=== PATIENT | male | born 1965 | race Caucasian/White ===

== ENCOUNTER 2016-08-14 18:21 | Emergency (ER) | payer BC ==
--- NOTE | 2016-08-14 18:50 | Emergency Department Record ---
History of Present Illness - General Chief Complaint: Chest Pain Stated Complaint: WEAK Time Seen by Provider: 08/14/16 18:45 Source: Patient Mode of Arrival: Ambulatory Limitations: No limitations - History of Present Illness Initial Comments: 51 yo male presents to ED with a CC of chest discomfort this afternoon to the left chest radiating to both arms. Patient denies health problems at his baseline aside from orthopedic injuries and DDD. Patient denies fevers, chills , or cough symptoms. Patient is a current smoker, reports family hsitory of CAD 50's (Father). MD Complaint: Chest pain Onset/Timin -: Week(s) Onset: Other Pain Location: Left chest Pain Radiation: LUE Quality: Aching, Other ("like a muscle cramp") Consistency: Now resolved Improves With: Remaining still, Other Worsens With: Nothing Context: New medications Treatments Prior to Arrival: None - Related Data Home Medications Medication Instructions Recorded Confirmed Last Taken Hydrocodone/Acetaminophen 1 tab PO Q6H PRN 08/14/16 08/14/16 Unknown [Hydrocodon-Acetaminophn 10-325] Allergies Allergy/AdvReac Type Severity Reaction Status Date / Time No Known Drug Allergies Allergy Verified 08/14/16 18:29 Travel Screening - Travel/Exposure Within Last 30 Days Have you traveled within the last 30 days?: No - Travel/Exposure Within Last Year Have you traveled outside the [place] in the last year?: No - Additonal Travel Details Have you been exposed to anyone with a communicable illness?: No - Travel Symptoms Symptom Screening: None Review of Systems Constitutional: Reports: Weakness. Denies: Chills, Fever Eyes: Denies: Eye discharge, Eye pain ENT: Denies: Congestion, Ear pain Respiratory: Denies: Cough, Dyspnea Cardiovascular: Reports: Chest pain. Denies: Dyspnea on exertion Endocrine: Denies: Fatigue, Heat or cold intolerance Gastrointestinal: Denies: Abdominal pain, Nausea, Vomiting Genitourinary: Denies: Incontinence, Retention Musculoskeletal: Denies: Arthralgia, Back pain, Gout, Joint swelling Skin: Denies: Bruising, Change in color Neurological: Denies: Abnormal gait, Confusion, Headache, Tingling Psychiatric: Denies: Anxiety Hematological/Lymphatic: Denies: Anemia, Blood Clots Past Medical History - SOCIAL HISTORY Smoking Status: Current every day smoker Alcohol Use: None Drug Use: None - RESPIRATORY Hx Respiratory Disorders: No - CARDIOVASCULAR Hx Cardio Disorders: No - NEURO Hx Neuro Disorders: Yes Comment:: 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 - GI Hx GI Disorders: No - Hx Genitourinary Disorders: No - ENDOCRINE Hx Endocrine Disorders: No - MUSCULOSKELETAL Hx Musculoskeletal Disorders: Yes - PSYCH Hx Psych Problems: No - HEMATOLOGY/ONCOLOGY Hx Hematology/Oncology Disorders: No Family Medical History Any Significant Family History?: Yes Hx Cancer: Grandparents Hx Heart Disease: Father, Grandparents Physical Exam - General General Appearance: Alert, Oriented x3, Cooperative, Anxious Limitations: No limitations - Head Head exam: Atraumatic, Normocephalic, Normal inspection Head exam detail: negative: Abrasion, Contusion, Salmeron's sign, General tenderness, Hematoma, Laceration - Eye Eye exam: Normal appearance. negative: Conjunctival injection, Periorbital swelling, Periorbital tenderness, Scleral icterus - ENT Ear exam: negative: Auricular hematoma, Auricular trauma Nasal Exam: negative: Active bleeding, Discharge, Dried blood, Foreign body, Sinus tenderness Mouth exam: negative: Drooling, Laceration, Muffled voice, Tongue elevation - Neck Neck exam: Normal inspection. negative: Meningismus, Tenderness - Respiratory Respiratory exam: Normal lung sounds bilaterally. negative: Respiratory distress, Rhonchi, Stridor, Wheezes - Cardiovascular Cardiovascular Exam: Regular rate, Normal rhythm, Normal heart sounds - GI/Abdominal GI/Abdominal exam: Soft. negative: Rebound, Rigid, Tenderness - Rectal Rectal exam: Deferred - exam: Deferred - Extremities Extremities exam: Normal inspection. negative: Calf tenderness, Pedal edema, Tenderness - Back Back exam: Reports: Normal inspection. Denies: CVA tenderness (R), CVA tenderness (L) - Neurological Neurological exam: Alert, Normal gait, Oriented X3 - Psychiatric Psychiatric exam: Normal affect, Normal mood - Skin Skin exam: Normal color. negative: Abrasion Type of lesion: negative: abrasion Course Vital Signs 08/14/16 18:31 Temperature 98.1 F Pulse Rate 102 H Respiratory 18 Rate Blood Pressure 143/89 Pulse Ox 98 - Reevaluation(s) Reevaluation #1: 08/14/16 18:47 NSR 85 Normal axis, normal intervals No acute ST-T wave changes Reevaluation #2: 08/14/16 20:03 Labs reviewed and are grossly unremarkable for an acute process. CXR: No acute process. Patient was updated on all results, offered transfer for stress testing tomorrow , patient declined. Patient is however willing to stay for 2nd Troponin with outpatient stress testing in 48 hours. Reevaluation #3: 08/14/16 22:10 Repeat Troponin is negative on examination. Patient appears stable for discharge with instructions to follow-up with the [facility] Tuesday- Tuesday for cardiac stress testing. Patient verbalizes understanding of all instructions. Medical Decision Making - Lab Data Result diagrams: 08/14/16 18:50 08/14/16 18:50 Disposition Disposition: Discharge Clinical Impression: Chest pain Qualifiers: Chest pain type: unspecified Qualified Code(s): R07.9 - Chest pain, unspecified Disposition: Home, Self-Care Condition: (2) Stable Instructions: Chest Pain (ED) Additional Instructions: Return to ED if your symptoms worsen or if you have any concerns. Follow-up Tuesday/Tuesday in the [facility] for cardiac stress testing. Follow-up with your family doctor in 3-5 days as directed. Referrals: MORA FLOWER M.D. [MEDICAL DOCTOR] - [facility] [Provider Group] Forms: Patient Portal Access Time of Disposition: 22:11
[2016-08-14] MEDS: ASPIRIN 81 MG CHEWABLE TABLET PO ONE (19:02)
[2016-08-14 19:06] LABS: BASO % 0.4 % (0-6); EOS % 2.8 % (0-6); GRAN % 55.4 % (47-80); HEMATOCRIT 47.8 % (42.0-52.0); HEMOGLOBIN 16.4 gm/dl (14.0-18.0); LYMPH % 32.8 % (16-45); MEAN CELL VOLUME 93.2 fl (81-97); MEAN CORPUSCULAR HGB CONC 34.3 g/dl (32-36); MEAN PLATELET VOLUME 11.8 fl (7.4-10.4); MONO % 8.6 % (0-9); PLATELET COUNT 255 K/uL (130-400); RED BLOOD COUNT 5.13 M/uL (4.40-5.70); WHITE BLOOD COUNT W/O DIFF 9.1 K/uL (4.2-12.2)
[2016-08-14 19:18] LABS: ALB/GLOB RATIO 1.7 (1.1-1.8); ALBUMIN 4.5 gm/dL (3.5-5.0); ALKALINE PHOSPHATASE 64 U/L (38-126); ALT/SGPT 25 U/L (21-72); ANION GAP 11.4 (7-16); AST/SGOT 18 U/L (17-59); BILIRUBIN,TOTAL 0.43 mg/dL (0.2-1.3); BLOOD UREA NITROGEN 11 mg/dL (9-20); CARBON DIOXIDE 26.6 mmol/L (22-30); CREATINE PHOSPHOKINASE 89 U/L (55-170); CREATININE 1.1 mg/dL (0.66-1.25); EST GLOMERULAR FILTRATION RATE > 60 ml/min; GLUCOSE,RANDOM 73 mg/dL (70-110); TOTAL PROTEIN 7.2 gm/dL (6.3-8.2)
[2016-08-14 19:30] LABS: CKMB 0.9 ug/L (0-6); TROPONIN I < 0.012 ng/mL (0.00-0.034)
[2016-08-14] MEDS: KETOROLAC 30 MG/ML VIAL IVP ONE (21:37)
--- NOTE | 2016-08-19 13:16 | RADIOLOGY REPORT ---
EXAM: CHEST, TWO VIEWS HISTORY: DIFFICULTY IN BREATHING. TECHNIQUE: Frontal and lateral views of the chest were performed. FINDINGS: The heart size is normal. The lung butler are clear. Elevation of the left hemidiaphragm. Mild degenerative change of the thoracolumbar junction. IMPRESSION: NO ACUTE PULMONARY DISEASE PROCESS. JOB NUMBER: [id number] MTDD
== END 2016-08-14 22:22 | disposition home or self-care (01) ==
LOC: ER 18:21
DX: R07.89 Other chest pain (principal); R53.1 Weakness; M79.622 Pain in left upper arm; M79.621 Pain in right upper arm; F17.210 Nicotine dependence, cigarettes, uncomplicated; Z82.49 Family history of ischemic heart disease and other diseases of the circulatory system
CPT/HCPCS: 99284 ×2; 96374; 82550; 85025; 82553; 84484; 80053; 71020; 93005; 93010; J1885

== ENCOUNTER 2019-03-18 11:21 | Emergency (ER) | payer BC, MEDICAID ==
--- NOTE | 2019-03-18 11:45 | Emergency Department Record ---
History of Present Illness - General Chief complaint: ENT Stated complaint: Right ear pain Time Seen by Provider: 03/18/19 11:44 Source: Patient, RN notes reviewed Mode of Arrival: Ambulatory - History of Present Illness Initial comments: right ear pain and swelling and it started two days ago and 4 days ago he had the two teeth removed molars on the bottom left side complaint: Ear pain (right) Onset/Timin -: Days(s) Severity scale (1-10): 6 Quality: Aching Consistency: Constant Improves with: None Worsens with: None - Related Data Home Medications Medication Instructions Recorded Confirmed Last Taken Amoxicillin 500 mg PO BID 03/18/19 03/18/19 Unknown Allergies Allergy/AdvReac Type Severity Reaction Status Date / Time No Known Drug Allergies Allergy Verified 08/14/16 18:29 Travel Screening - Travel/Exposure Within Last 30 Days Have you traveled within the last 30 days?: No Review of Systems Reviewed: No additional complaints except as noted below Constitutional: Reports: As per HPI. Denies: Chills, Fever, Malaise, Night sweats, Weakness, Weight change Eyes: Reports: As per HPI. Denies: Eye discharge, Eye pain, Photophobia, Vision change ENT: Reports: As per HPI, Ear pain (right). Denies: Congestion, Dental pain, Epistaxis, Hearing loss, Throat pain Respiratory: Reports: As per HPI. Denies: Cough, Dyspnea, Hemoptysis, Stridor, Wheezes Cardiovascular: Reports: As per HPI. Denies: Arrhythmia, Chest pain, Dyspnea on exertion, Edema, Murmurs, Orthopnea, Palpitations, Paroxysmal nocturnal dyspnea, Rheumatic Fever, Syncope Endocrine: Reports: As per HPI. Denies: Fatigue, Heat or cold intolerance, Kurt ydipsia, Polyuria Gastrointestinal: Reports: As per HPI. Denies: Abdominal pain, Constipation, Diarrhea, Hematemesis, Hematochezia, Melena, Nausea, Vomiting Genitourinary: Reports: As per HPI. Denies: Dysuria, Frequency, Hematuria, Incontinence, Retention, Testicular pain, Testicular mass, Urgency Musculoskeletal: Reports: As per HPI. Denies: Arthralgia, Back pain, Gout, Joint swelling, Myalgia, Neck pain Skin: Reports: As per HPI. Denies: Bruising, Change in color, Change in hair/nails, Lesions, Pruritus, Rash Neurological: Reports: As per HPI. Denies: Abnormal gait, Confusion, Headache, Numbness, Paresthesias, Seizure, Tingling, Tremors, Vertigo, Weakness Psychiatric: Reports: As per HPI. Denies: Anxiety, Auditory hallucinations, Depression, Homicidal thoughts, Suicidal thoughts, Visual hallucinations Hematological/Lymphatic: Reports: As per HPI. 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 - GI Hx GI Disorders: No - Hx Genitourinary Disorders: No - ENDOCRINE Hx Endocrine Disorders: No - MUSCULOSKELETAL Hx Musculoskeletal Disorders: Yes - PSYCH Hx Psych Problems: No - HEMATOLOGY/ONCOLOGY Hx Hematology/Oncology Disorders: No Family Medical History Any Significant Family History?: Yes Hx Cancer: Grandparents Hx Heart Disease: Father, Grandparents Physical Exam - General General Appearance: Alert, Oriented x3, Cooperative, No acute distress - Head Head exam: Normal inspection - Eye Eye exam: Normal appearance, PERRL Pupils: Normal accommodation - ENT ENT exam: Normal exam, Mucous membranes moist, Normal external ear exam, Normal orophraynx, TM's normal bilaterally Ear exam: Normal external inspection. negative: External canal tenderness Nasal Exam: Normal inspection. negative: Discharge, Sinus tenderness Mouth exam: Normal external inspection, Tongue normal Teeth exam: Normal inspection. negative: Dental caries Throat exam: Normal inspection. negative: Tonsillar erythema, Tonsillar exudate - Neck Neck exam: Normal inspection, Full ROM. negative: Tenderness - Respiratory Respiratory exam: Normal lung sounds bilaterally. negative: Respiratory distress - Cardiovascular Cardiovascular Exam: Regular rate, Normal rhythm, Normal heart sounds - GI/Abdominal GI/Abdominal exam: Soft, Normal bowel sounds. negative: Tenderness - Rectal Rectal exam: Deferred - exam: Deferred - Extremities Extremities exam: Normal inspection, Full ROM, Normal capillary refill. negative: Tenderness - Back Back exam: Reports: Normal inspection, Full ROM. Denies: Muscle spasm, Rash noted, Tenderness - Neurological Neurological exam: Alert, Normal gait, Oriented X3, Reflexes normal - Psychiatric Psychiatric exam: Normal affect, Normal mood - Skin Skin exam: Dry, Intact, Normal color, Warm Course Vital Signs 03/18/19 11:31 Temperature 97.6 F Pulse Rate 70 Respiratory 18 Rate Blood Pressure 135/80 Pulse Ox 98 - Reevaluation(s) Reevaluation #1: ear wick placed and cortisporin otic placed 4 drops 03/18/19 12:41 03/18/19 12:41 Disposition Clinical Impression: Otitis externa Qualifiers: Otitis externa type: swimmer's ear Chronicity: acute Laterality: right Qualified Code(s): H60.331 - Swimmer's ear, right ear Disposition: Home, Self-Care Condition: (1) Good Instructions: Otitis Externa (ED) Additional Instructions: use cortisporin drops 4 drops four times a day follow up with Dr Gil in 4 days to remove the wick tylenol or motrin Forms: Patient Portal Access Time of Disposition: 12:45 Quality - Quality Measures Quality Measures: N/A - Blood Pressure Screening Does Patient Have Any of the Following: No Blood Pressure Classification: Pre-Hypertensive BP Reading Systolic Measurement: 135 Diastolic Measurement: 80 Screening for High Blood Pressure: < Pre-Hypertensive BP, F/U Documented > [[id number]] Pre-Hypertensive Follow-up Interventions: Referral to alternative/primary care provider.
[2019-03-18] MEDS ORDERED: PROPARACAINE HCL OPTH 15ML BTL OPTH ONE (11:54)
[2019-03-18] MEDS ORDERED: NEOMYCIN/POLYMYXIN B SULF/HC 10ML BTL OT ONE (12:27)
== END 2019-03-18 12:53 | disposition home or self-care (01) ==
LOC: ER 11:21
DX: H66.91 Otitis media, unspecified, right ear (principal)
CPT/HCPCS: 99282; 99283